=== PATIENT | female | born 1955 | race Caucasian/White ===

== ENCOUNTER → 2016-12-23 | Outpatient (CLI) | payer OTHER ==
[~2016-12-23] MED LIST: MULTI-DAY1 TAB PO; OMEPRAZOLE40 MG PO; TYLOX 5/500 CAP1 CAP PO; VITAL-D RX TABL1 TAB PO
--- NOTE | ~2016-12-23 | US6 ---
[facility] A Service of [facility] RADIOLOGY TEXT RESULTS PATIENT: CLARITZA CARRILLO LOCATION: [facility], [place] : 59 UNIT #: [id number] AGE: [address]: Dhruv Fontanez MD SEX: F ORDER DR: [id number] [place] [id number] MR#: [id number] Acc #: [id number] NAME: CLARITZA CARRILLO : 1955 SEX: F STUDY DATE/TIME: 12/23/2016 10:07 UNIT: SGUS ROOM: STUDY DESCRIPTION: US Abdominal Limited Attending Physician: Dhruv Fontanez M.D. Referring Physician: Dhruv Fontanez M.D. Ordering Physician: Dhruv Fontanez M.D. Primary Care Physician: Dhruv Fontanez M.D. MEDICAL IMAGING REPORT This report is preliminary unless electronic signature is present. EXAM Right upper quadrant abdominal ultrasound INDICATIONS Elevated liver enzyme levels for the past month. PROCEDURE Roberts-scale and Doppler imaging right upper quadrant of the abdomen COMPARISON 07/30/2012 FINDINGS Pancreas is obscured and not well seen. The liver measures 19.2 cm in length and has increased echotexture. Right kidney measures 10.9 cm and is unremarkable. Common duct measures 5 mm. Previous cholecystectomy. IMPRESSION 1. Borderline hepatomegaly with increased echotexture most in keeping with steatosis. 2. Previous cholecystectomy. Dictated by... Frantz Caceres M.D. THIS IS AN ELECTRONICALLY VERIFIED REPORT Frantz Caceres M.D. at 12/24/2016 8:26 AM EED/to TD: 12/23/2016 17:04 JOB #: [id number] [facility] A Service [facility] RADIOLOGY TEXT RESULTS PATIENT: CLARITZA CARRILLO LOCATION: [facility], [place] : 59 UNIT #: [id number] AGE: [address]: Dhruv Fontanez MD SEX: F ORDER DR: MEDICAL IMAGING REPORT Page 1 of 1
== END | disposition home or self-care (01) ==
LOC: SGUS 09:53
DX: R79.89 Other specified abnormal findings of blood chemistry (principal); R16.0 Hepatomegaly, not elsewhere classified; Z90.49 Acquired absence of other specified parts of digestive tract
CPT/HCPCS: 76705